=== PATIENT | male | born 1985 | race Caucasian/White ===

== ENCOUNTER 2025-08-13 01:17 | Day surgery (SDC) | payer BC, SELFPAY ==
[2025-08-05 17:15] VITALS: BMI 36.2
--- NOTE | 2025-08-05 17:42 | PC.NURSE ---
[facility] has started construction of its new state of the art ER which will open Spring 2026. With this, we anticipate parking may be a challenge for some our surgical patients and families. Parking spaces are limited but are available for all Surgical, obstetrics, and ER patients sharing this lot. If you arrive and find you are having a hard time finding a parking space, please note that we understand the challenges, please drive around the hospital and park near Hospital Entrance 1. When you enter this entrance, you can ask a volunteer to direct or take you back to the surgical waiting area to check in. We appreciate everyone?s understanding of these expected challenges while we build for your future. Report to the Outpatient Waiting Room, entrance under the green pavilion located off [address], at 1000 on 08-13-25. Planned Procedure Time: 1200.? Time changes happen often and if your time is changed the preop area will call you the afternoon before. - You and your visitor will be asked to self-screen and do not enter if you have any COVID symptoms. Please call surgeon if you need to reschedule. - A mask is optional within the hospital at this time. Patients may have clear liquids (water, carbonated beverages, clear teas, apple juice) until 3 hours prior to surgery with a maximum of 20 ounces. 0900 - No food from midnight until time of surgery and no smoking, or chewing tobacco (or any form of nicotine). No chewing gum, candy or mints. - Infants may have breast milk until 4 hours before surgery, formula 6 hours prior to surgery. - Children will be allowed to drink immediately following surgery.? If applicable, please bring a bottle or sippy cup to assist with drinking. Juice, water, soda, and popsicles are readily available.? For infants on formula, please bring formula the day of surgery.? Pacifiers are allowed. Take only the following medications with a SIP of water on the morning of surgery: levothyroxine, Tramadol if needed DO NOT STOP ANY OF YOUR OTHER PRESCRIPTION MEDICATIONS PRIOR TO SURGERY EXCEPT THE FOLLOWING Hold all vitamins and supplements for 3 days per anesthesiologist. 08-10-25 Medications to discontinue per physician: N/A Please no make-up, nail korean, hairspray, perfume, deodorant, or body powder the day of surgery.? No jewelry (including any body piercings) or valuables the day of surgery, leave them at home.? Please take a shower or bath the night before, or the morning of, surgery with an antibacterial soap.? Wear comfortable, loose fitting clothing.? Children are encouraged to wear pajamas. - Jewelry must be removed prior to entering the operating room.? Rings and piercings that are not removed may be cut off. - The hospital will not accept responsibility for valuables.? - Please leave all valuables, including medications, at home the day of surgery. If you are going home after surgery, a licensed clark driver must drive you home.? - NO public transportation without another adult if you receive anesthesia. - We recommend that an adult stay with you for 24 hours following discharge. - We also recommend that you do not drive, make important decision, drink alcoholic beverages, or take any drugs that were not prescribed by your health care provider for at least 24 hours after your discharge time. For Pediatric surgeries, we recommend two adults accompany the child home. Follow any additional instructions given to you from your surgeon. Telephone instructions given to Jose Cruz Torres and asked if any additional questions and then verbalized understanding. Patient advised to call surgeon office or pre surgery nurse liaison [phone] if any additional questions.
[2025-08-13] VITALS (8 sets, daily range): BP systolic 119–142; BP diastolic 79–97; PULSE 60–76; RESP 12–21; TEMP 36.2–36.6; O2SAT 95–100
--- OUTSIDE RECORDS SUMMARY | 2025-08-13 02:09 | XMS_ITS | Clinical Summary ---
Author Organization [facility] Address [address] [place] [id number] Care Team Providers Care Ladle Filler Name Role Phone Vinicius Babin MD Primary Care Provider + Juana Love MD Unavailable [phone] Little Jalloh Unavailable [phone] Allergies No known active allergies Medications sertraline (ZOLOFT) 100 mg tablet 1 Active traMADoL (ULTRAM) 50 mg tablet Take 1 tablet (50 mg total) by mouth every 6 (six) hours Active levothyroxine (SYNTHROID) 125 mcg tabletIndicatio ns:Papillary thyroid carcinoma (HCC) Take 1 tablet (125 mcg total) by mouth meat cooler before breakfast 90 tablet 3 5 Active cholecalciferol (VITAMIN D-3) 25 mcg (1,000 unit) tabletIndicatio ns:Vitamin D Deficiency Take 1 tablet (1,000 Units total) by mouth daily 90 tablet 3 5 03/04/20 26 Active Active Problems Problem Noted Date Diagnosed Date Papillary thyroid carcinoma 09/03/2021 History of radioactive iodine thyroid ablation 0 09/03/2021 Sprain of anterior cruciate ligament of right kn ee 05/01/2018 Overview (05/01/2018): Added automatically from request for surgery [id number] Medical History Medical History Date Comments Cancer (HCC) Social History Tobacco Use Types Packs/Day Years Used Date Smoking Tobacco: Former Cigarettes Q uit: 05/26/2022 Tobacco Cessation:Counseling Given: Not Answered Sex and Gender Information Value Date Recorded Sex Assigned at Not on file Legal Sex 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 Gender Identity Not on file Sexual Orientation Not on file Last Filed Vital Signs Vital Sign Reading Time Taken Comments Blood Pressure 139/98 09/20/2024 3:42 PM IT APPLICATION ADMINISTRATOR Pulse 63 09/20/2024 3:42 PM IT APPLICATION ADMINISTRATOR Temperature - - Respiratory Rate - - Oxygen Saturation 99% 09/20/2024 3:42 PM IT APPLICATION ADMINISTRATOR Inhaled Oxygen Concentration - - Weight 122.5 kg (270 lb) 09/20/2024 3:42 PM IT APPLICATION ADMINISTRATOR Height - - Body Mass Index - - Plan of Treatment Health Maintenance Due Date Last Done Comments Depression Screening 1984 Hepatitis C Screening 1985 Varicella Vaccines (1 of 2 - 13+ 2-dose series) 1997 Regular Well Visit/Exam 18-64 2002 HPV Vaccines (1 - 3-dose SCDM series) 2011 DTaP/Tdap/Td Vaccine (2 - Td or Tdap) 01/15/2021 01/15/2011 Covid-19 Vaccine (2 - 2024- season) 2025 10/20/2020 Influenza Vaccine (#1) 2025 05/15/2014 Hepatitis B Screening Completed 07/28/2011 , 02/17/2011, 01/15/2011, Additional history exists Pneumococcal vaccine <65 Aged Out No longer eligible based on patient's age to complete this topic Insurance [facility] ACCESS ANTH ACCESS Care Teams Ladle Filler Relationship Specialty Start Date End Date Vinicius Babin MD PCP - General 08/22/19 Juana Love MD [facility] [address] Radiation Oncologist Radiation Oncology 01/05/24 Little Jalloh PA [address] [place] [id number] Physician Hearing Instrument Specialist Radiation Oncology 01/05/24
--- OUTSIDE RECORDS SUMMARY | 2025-08-13 02:09 | XMS_ITS ---
Author Organization [facility] Address [address] [place] [id number] Care Team Providers Care Childhood Teacher Name Role Phone Vinicius Babin MD Primary Care Provider + Juana Love MD Unavailable [phone] Little Jalloh Unavailable [phone] Active Problems Problem Noted Date Diagnosed Date Papillary thyroid carcinoma 09/03/2021 History of radioactive iodine thyroid ablation 0 09/03/2021 Sprain of anterior cruciate ligament of right kn ee 05/01/2018 Overview (05/01/2018): Added automatically from request for surgery [id number] Current Treatment and Therapy Plans Thyrogen: Stimulation of Thyroglobulin levels (Thyrotopin rosanne)* Plan Start Date:07/26/2022 Plan Provider:Little Jalloh PA Linked Problems Papillary thyroid carcinoma (HCC)History of radioactive iodine thyroid ablation Treatment Medications No medications scheduled. Past Treatment and Therapy Plans No past plan information found.
--- OUTSIDE RECORDS SUMMARY | 2025-08-13 02:09 | XMS_ITS | Clinical Summary ---
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
--- NOTE | 2025-08-13 07:24 | ECG_ITS ---
Test Date: 2025-08-13 10:37:01 Measurements Intervals [place] Rate: 77 P: 21 CT: 166 QRS: -6 QRSD: 101 T: 16 QT: 381 QTc: 433 Interpretive Statements SINUS RHYTHM INCOMPLETE RIGHT BUNDLE BRANCH BLOCK BORDERLINE R WAVE PROGRESSION, ANTERIOR LEADS BORDERLINE ECG No previous ECG available for comparison Electronically Signed On 08-13-2025 19:19:12 JOCKEY AGENT by Rusty La D.O.
[2025-08-13] MEDS: LACTATED RINGERS 1,000 ML 30 ML IV CONT (11:00)
--- NOTE | 2025-08-13 11:38 | WPDANESEPPF ---
Anes - Initial Pre Proc Eval Procedure: Operation Date: 08/13/25 12:00 Proposed Procedures p Bilateral Vasectomy - Tye Ceron MD Date/Time: 08/13/25 11:38 Surgeon: Tye Ceron MD Pre Op Diagnosis: desires sterilization Patient Data Age: 40 Gender: M Height: 1.8 m Weight: 122.6 kg Last Vital Signs Temp 36.6 C 08/13/25 10:44 Pulse 76 08/13/25 10:44 Resp 16 08/13/25 10:44 BP 126/95 H 08/13/25 10:44 Pulse Ox 95 08/13/25 10:44 O2 Del Method Room Air 08/13/25 10:44 Allergies Allergy/AdvReac Type Severity Reaction Status Date / Time Sulfa (Sulfonamide Allergy Mild Flushing Verified 08/13/25 10:48 Antibiotics) BEANS Allergy Mild other Uncoded 08/05/25 17:07 Home Medications ?Medication ?Instructions ?Recorded ?Confirmed ?Type cholecalciferol (vitamin D3) 25 1,000 unit PO HS 08/05/25 08/13/25 History mcg (1,000 unit) tablet dextroamphetamine-amphetamine 10 10 mg PO BID 08/05/25 08/05/25 History mg tablet docusate sodium 100 mg capsule 100 mg PO HS 08/05/25 08/05/25 History (Colace) levothyroxine 125 mcg tablet 125 mcg PO DAILY 08/05/25 08/13/25 History sertraline 100 mg tablet 100 mg PO HS 08/05/25 08/13/25 History tramadol 50 mg tablet 50 mg PO DAILY PRN shoulder pain 08/05/25 08/05/25 History Patient hx anesthesia problems: none Family hx anesthesia problems: none Results Review: All pre-operative results and documents have been reviewed as part of the pre-operative evaluation. PMFSH Social History Social History Smoking packs per day: 1 Smoking cigarettes per day: 20.0 Years smoked: 20 Smoking pack-years: 20.00 Smoking status: Former smoker Tobacco type: cigarettes and e-cigarettes/vaping Second hand tobacco smoke exposure: No Smoking end date: 08/15/21 Additional smoking assessment comments: still vapes today w/ nicotine Alcohol intake: current Alcohol use details: very rarely Substance use: never Substance use type: does not use Living arrangements: with family Spiritual care concerns: No Anes - Eval Final PreProcedure Day of Procedure 08/13/25 11:38 Patient weight: obese Heart: regular rate and rhythm Lungs: clear to auscultation Airway: Mallampati scale class 1 Neurological: alert and oriented Last oral intake: >/= 8 hours ASA classification: III Emergent: no Anesthetic plan: proceed Anesthesia type and monitoring: general LMA and standard monitoring Results Review: All pre-operative results and documents have been reviewed as part of the pre-operative evaluation. Informed Consent: The patient's anesthetic plan and its attendant risks and benefits were discussed with the patient/family/POA. Questions were solicited and answers provided to the satisfaction of the patient/family/POA.
--- NOTE | 2025-08-13 12:11 | WPDHPUPDATE1 ---
History and Physical Update Update Date/Time: 08/13/25 12:11 History and Physical has been reviewed, including an updated exam of the patient. There are NO changes in the patient's condition. Risks, benefits, and alternatives have been discussed and questions answered. Patient agrees to proceed with procedure.
--- NOTE | 2025-08-13 12:11 | PM.HPGS ---
History of Present Illness History of Present Illness Consent: Risks, benefits, and alternatives have been discussed and questions answered. Patient agrees to proceed with procedure. Chief complaint: desires sterilization Narrative: Jose Cruz Torres is a 40 year old male pre desires permanent sterilization and was recently evaluated in the urology clinic for vasectomy evaluation. On physical exam his vas deferens were difficult to palpate bilaterally. He presents today for bilateral vasectomy in the operating room. He denies any changes passes baseline and is ready for the procedure today. Review of Systems Review of Systems: Constitutional: No fevers or chills Eyes: No changes in vision HENT: No hearing loss Cardiovascular: No chest pain or palpitations Respiratory: No shortness of breath, cough, wheezing GI: No abdominal pain, nausea, or vomiting : No dysuria or difficulty urinating Heme: No easy bruising or bleeding Skin: No rash or itching MSK: No myalgias or joint pain Psych: No hallucinations Neuro: No lateralized numbness or tingling PMFSH Social History Social History Smoking packs per day: 1 Smoking cigarettes per day: 20.0 Years smoked: 20 Smoking pack-years: 20.00 Smoking status: Former smoker Tobacco type: cigarettes and e-cigarettes/vaping Second hand tobacco smoke exposure: No Smoking end date: 08/15/21 Additional smoking assessment comments: still vapes today w/ nicotine Alcohol intake: current Alcohol use details: very rarely Substance use: never Substance use type: does not use Living arrangements: with family Spiritual care concerns: No Meds Home Medications and Allergies Home Medications ?Medication ?Instructions ?Recorded ?Confirmed ?Type cholecalciferol (vitamin D3) 25 1,000 unit PO HS 08/05/25 08/13/25 History mcg (1,000 unit) tablet dextroamphetamine-amphetamine 10 10 mg PO BID 08/05/25 08/05/25 History mg tablet docusate sodium 100 mg capsule 100 mg PO HS 08/05/25 08/05/25 History (Colace) levothyroxine 125 mcg tablet 125 mcg PO DAILY 08/05/25 08/13/25 History sertraline 100 mg tablet 100 mg PO HS 08/05/25 08/13/25 History tramadol 50 mg tablet 50 mg PO DAILY PRN shoulder pain 08/05/25 08/05/25 History Allergies Allergy/AdvReac Type Severity Reaction Status Date / Time Sulfa (Sulfonamide Allergy Mild Flushing Verified 08/13/25 10:48 Antibiotics) BEANS Allergy Mild other Uncoded 08/05/25 17:07 Vital Signs Vital Signs - 24 hr 08/13/25 10:44 Temperature 36.6 C Pulse Rate 76 Respiratory Rate 16 Blood Pressure 126/95 H Pulse Oximetry 95 Oxygen Delivery Room Air Exam Narrative: General: Alert, no acute distress Head: Normocephalic, atraumatic Eyes: Extraocular movements intact Neck: No JVD, trachea midline Respiratory: Symmetric chest rise, nonlabored breathing on room air CV: Normal rate, adequate peripheral perfusion Abdomen: Soft, nontender, nondistended : Deferred Skin: Warm/dry Extremities: No peripheral edema, no cyanosis Neuro: No focal deficits Psych: Answers questions appropriately, appropriate mood Assessment and Plan Assessment and plan (1) Encounter for sterilization: Code(s): Z30.2 - Encounter for sterilization Status: Acute Plan 40yM who desires permanent sterilization - To OR for bilateral vasectomy - Risks, benefits, alternatives reviewed the patient. He expressed understanding and agreement to proceed. - Anticipate discharge home thereafter
[2025-08-13] MEDS: ceFAZolin 3 GM/D5W 100 ML 100 ML IVPB (12:25)
--- NOTE | 2025-08-13 12:39 | S_PTH ---
PATIENT: Jose Cruz Torres LOC: [facility] U#:[id number] AGE/SX: 40/M ROOM: RE08/13/[address]: Tye Ceron MD : 1985 BED: DIS: 08/13/2025 SPEC #: [id number] RECD: 08/13/25 13:02 STATUS: GLADIS REQ #: [id number] SHERIF: 08/13/25 12:[address]: Tye Ceron DEPT: [facility] Surgical RECD BY: Kelly Jacobs ENTERED: 08/13/25 13:03 SP TYPE: Surgical OTHR DR: Vinicius Babin, Tissues: A - Vas Deferens B - Vas Deferens Procedures: Gross Exam Level 1
--- NOTE | 2025-08-13 12:56 | W.PM.PROC2 ---
Procedure Note - Detailed Date of Procedure 08/13/25 Pre-op Diagnosis Desired sterilization Post-op Diagnosis Same Procedure Performed Bilateral vasectomy Surgeon Tye Ceron MD Anesthesia General Description of Procedure Under sterile conditions, 0.25% plain marcaine was administered to provide local skin anesthesia and a regional vasal block. Next, the no-scalpel vasectomy approach was used and Darrel forceps were used to spread the skin open the right upper hemiscrotum. A clamp was used to grasp the right vas deferens, which was brought out through the skin opening. A scalpel was used to incise the sheath of the vas and Adson forceps were used to grasp the vas and deliver it out of the sheath. The vas was dissected free of any attachments and a clamp was placed on either side of the freed vas. Next, a 1-2 cm segment of the right vas was cut and collected for pathologic analysis. Thermal cautery was used to cauterize both free ends of the cut vas and a 2-0 silk tie was used to occlude both free ends of the vas underneath both clamps. Attention was then drawn to the left hemiscrotum and the left vas deferens was excised in the exact same fashion. The area was then inspected thoroughly and excellent hemostasis was confirmed. The vas was then reduced back into the scrotum bilaterally. A single horizontal mattress suture of 3-0 chromic was used to close the skin entrance sites on the bilateral upper hemiscrotum. Antibiotic ointment was applied to the entrance sites and gauze was placed over top. The patient tolerated the procedure well and there were no complications noted. Estimated Blood Loss 1
== END 2025-08-13 14:40 | disposition home or self-care (01) ==
PROVIDERS: PCP Family Medicine; Visit Provider Urology
PROC: (CPT 55250; principal; 2025-08-13 12:00)
DX: Z30.2 Encounter for sterilization (principal); F17.290 Nicotine dependence, other tobacco product, uncomplicated; E66.9 Obesity, unspecified; Z68.37 Body mass index [BMI] 37.0-37.9, adult
CPT/HCPCS: 55250; 88300; 93005; A9270; J0690; J1100; J2250; J2405; J2704; J3010; J7120